=== PATIENT | female | born 1995 ===

== ENCOUNTER 2023-04-28 10:36 | Emergency (ER) | payer MEDICAID ==
[~2023-04-28] VITALS: Ht 165.1 cm; Wt 49.6 kg
[2023-04-28 10:36] VITALS: BP 103/65; PULSE 61; RESP 16; TEMP 98; O2SAT 99
== END 2023-04-28 14:33 | disposition left against medical advice (07) ==
LOC: ER 10:36
DX: F32.A Depression, unspecified (principal); Z53.21 Procedure and treatment not carried out due to patient leaving prior to being seen by health care provider
CPT/HCPCS: 99281